=== PATIENT | male | born 1940 | race Caucasian/White ===

== ENCOUNTER 2020-08-30 22:27 | Inpatient (IN) | payer OTHER ==
--- NOTE | 2020-08-31 04:41 | NUR ---
Admission note: Pt admitted at 2205 to [facility], transferred to bed with assist x 2-3 Pt is Alert to self but when he is awake and agitated and combative with cares. V/S 99.0, 116/61, 19, 48, Pt has a decubitus ulcer present on admission to [facility]. Wound is on sacral cleavage 4 cm, depth not measured, Wound consult obtaimed, Joshua Galvez notified of admission, Left a message for Daniel CALLOWAY, she called back and will see the pt this am. Pt denies SI/HI/AH/VH. Lungs clear to auscultation. Until seen by wound care nurse will apply wet to dry dressing to decub. Telephonic consent obtained from Daniel Teran pt DPOA and daughter. She gave consent to treat. Request to have DPOA paperwork. She will bring but states ED should have a copy.
[2020-08-31 05:23] VITALS: BP 119/61
[2020-08-31 06:12] LABS: CHOLESTEROL 109 mg/dL (<200); HDL CHOLESTEROL 51 mg/dL (>40); LDL CHOLESTEROL 48 mg/dL (<100); TC:HDL 2.1 Ratio (Not establshd); TRIGLYCERIDE 51 mg/dL (<150); VLDL 10 mg/dL (<40)
[2020-08-31 06:14] LABS: SERUM ASSESSMENT Clear
--- NOTE | 2020-08-31 07:12 | NUR ---
Wound has not depth, gary red, w/d dressing not needed cleansed wound and applied foam dressing, could benefit from barrier cream on surrounding skin. Pt resistant to turning but did allow staff to keep him clean and dry throughout the night worker with his bottom open to area.
[2020-08-31 09:39] VITALS: BP 143/65
--- NOTE | 2020-08-31 11:26 | NUR ---
1125 RESUMMED CARE FROM OVERNIGHT SHIFT THIS AM, PATIENT IN ROOM LYING QUIET. STAFF AND I GOT PATIENT UP TO GET HIM INTO THE DAY ROOM, PATIENT WAS COMBATIVE WITH CARES. I CLEANED PATIENTS WOUND ON BUTTOCK AND PUT BARRIER CREAM ON THE WOUND AND OPTIFOAM ON THE WOUND. WHILE PUTTING THE PATIENT IN THE NERISSA CHAIR THE OPTIFOAM FELL OFF. WE DO HAVE A CONSULT FOR THE WOUND CARE TEAM TO COME TO SEE PATIENT. PATIENTS DAUGHTER CAME TO VISIT AND STATES THE NH THAT HER FATHERS RESIDES ALLOWS PATIENT TO SIT ALL DAY. SHE FEELS THEY WERE NOT TAKING CARE OF THE WOUND. SHE WOULD LIKE TO SEE ABOUT HOSPICE FOR PATIENT BECAUSE SHE FEELS HE IS GIVING UP. PATIENT UNABLE TO TELL ME ABOUT SI/HI/AH/VH AT PRESENT. PATIENT IS NONE VERBAL BUT WILL HIT AND TRY TO PINCH STAFF WHEN TRYING TO DO CARES. PATIENTS ABSOMEN SOFT BOWEL SOUNDS PRESENT PATIENTS LUNGS CLEAR. WILL CONTINUE TO MONITOR PATIENT FOR SAFETY AND BEHAVIORS.
--- NOTE | 2020-09-01 03:22 | NUR ---
08/31/20- Pt is in bed, alert, agreeable to taking his medication, medications in ice cream. Pt is resistive to cares but with explanation he will allow it. Pt has a sacral ulcer present on admission so he requires frequent checks for incontinence, and turning, pt is resistant to turning but will allow staff to keep him clean and dry. barrier cream applied. will continue to monitor patient through out shift.
[2020-09-01 05:36] LABS: GLYCOHEMOGLOBIN (HGB A1C) 5.2 % (4.8-5.6)
[2020-09-01 08:00] VITALS: BP 120/68
--- NOTE | 2020-09-01 18:40 | NUR ---
PT GETS VERY AGITATED WHEN HE NEEDS TOLIETED OR ANY CARE DONE. PT IS A Q2 TURN AND HIS BRIEF CHECKED Q2 HOURS AND PRN. PT HAS LARGE WOUND TO BUTTOCK AND CONSULT WAS PLACED TO WOUND CARE PHYSICIAN. BARRIER CREAM IS BEING APPLIED TO BUTTOCK. PT'S DAUGHTER VISITED AT AM VISITING HOURS.
--- NOTE | 2020-09-02 01:14 | NUR ---
Assumed care on 09/01/20 @ 1900, reports lower extremities painful, Tylenol 1000mg provided @ 20:05 for lower extremity pain (buttocks). meds provided crushed in pudding. turned and incontinent care provided [id number], tries to hit staff providing care. A&Ox1 to self only. Wheel chair and karla chair used, Farley score of 50. Bed in low position, bed alarm set, will continue to monitor for safety and comfort.
[2020-09-02 08:46] VITALS: BP 126/61
[2020-09-02 08:47] VITALS: BP 126/61
--- NOTE | 2020-09-02 13:11 | NUR ---
Assumed pt care at 0700. Pt was sleeping in his room. pt was confused, Aggressive, combative and hitting staff upon assessments. pT IS DISoriented x4. Assessments completed, vss. ACtive bowel sounds. pt AM temperature was elevated. AMbulates wITH A Deborah chair. Took meds crushed, no difficulty noted. pt bottom pressure wound was clean with saline water, zyguard applied. WOUND CARE Doctor saw pt this shift. PT AND DAUGHTER CALLED TO GET UPDATE ON PT. pT NOON VITAL SIGN BP 116/50, O2 94% Temporal TEM 100.1, anxillary TEM 99.1. RESP 18. DR CRAWFORD notified. AT this time pt is in the day room resting. WILL CONTINUE TO MONITOR.
--- NOTE | 2020-09-02 14:35 | NUR ---
WALTER contacted [facility] and asked to speak to Emma. She was busy at the moment, and so WALTER was forwarded to her . WALTER left a msg. WALTER team will continue to follow pt during his stay on this unit.
[2020-09-02 15:44] LABS: BASOPHILS 0.3 % (0.0-2.0); EOSINOPHILS 0.1 % (0.0-3.0); HEMATOCRIT 39.6 % (42.0-52.0); HEMOGLOBIN 12.8 gm/dL (14.0-18.0); LYMPHOCYTES 2.4 % (24.0-44.0); MCH 29.3 pg (26.0-34.0); MCHC 32.3 g/dL (28.0-37.0); MCV 90.7 fL (80.0-100.0); PLATELET COUNT 190 thou/uL (150-400); POLYS 86.2 % (36.0-66.0); RBC 4.37 mil/uL (4.50-6.00); RDW 13.8 % (10.5-14.5); WBC 11.6 thou/uL (4.0-11.0)
[2020-09-02 15:58] LABS: CALCIUM 9.2 mg/dL (8.5-10.1); CREATININE 0.9 mg/dL (0.7-1.3); POTASSIUM 3.9 mmol/L (3.5-5.1)
[2020-09-02 18:34] LABS: URINE BILIRUBIN NEGATIVE (Negative); URINE BLOOD 3+ (Negative); URINE COLOR YELLOW; URINE GLUCOSE-RANDOM* NEGATIVE (Negative); URINE KETONES 1+ (Negative); URINE PROTEIN (DIPSTICK) 1+ (Negative); URINE SPECIFIC GRAVITY 1.025 (1.005-1.035)
[2020-09-02 18:38] LABS: URINE CLARITY CLOUDY; URINE LEUKOCYTES-REFLEX 1+ (Negative); URINE NITRITE-REFLEX POSITIVE (Negative)
[2020-09-02 18:43] LABS: BACTERIA-REFLEX >30 Many /HPF (None Seen); CASTS None Seen /LPF (None Seen); SQUAMOUS None Seen /LPF (0-3); URINE WBC-REFLEX >25 Many /HPF (0-5)
[2020-09-02 18:44] LABS: AMORPHOUS URATES Moderate /LPF (None Seen)
[2020-09-02 19:53] VITALS: BP 143/59
--- NOTE | 2020-09-03 00:30 | NUR ---
Assumed care on 09/02/20 @ 1900, in bed, repositioning and providing incontinent care q2hour not cooperative with care. A&Ox1 to self only speaks word salad, and insists that he is listened to, but speach is nonsense. New order for Cephalexin 500 for UTI, started @ 2300, administered in pudding with water. Wounds on both left and right gluteal and coccyx cleaned with NS, treated with silversulfadiazine mixed with barrier cream. Bed in low position, bed alarm set. PRN tylenol 1000 mg provided for pain of 6/10 in the lower extremities and buttocks. Will continue to monitor as per unit protocol.
[2020-09-03 09:24] VITALS: BP 134/63
--- NOTE | 2020-09-03 12:31 | NUR ---
Alert and orientated to name only. Denies SI/HI. Requiring assistance with feeding but is compliant. Breath sounds clear. Regular HR auscultated. Color pink with brisk capillary refill and palpable peripheral pulses. No edema noted. Brief dry. Active bowel sounds over soft, flat abdomen. Wounds per buttocks bilaterally and coccyx with scant amt serosangious drainage. Cleaned and silvadene/barrier cream applied. Placed in karla chair. Sitting in chair all AM without s/o distress.
--- NOTE | 2020-09-03 14:31 | HC ---
[facility] [place] [address] [place] [address] CONSULTATION Name: SAHIL BRIONES Room #: 528A-A ADM IN .R.#: [id number] Admission: 08/30/20 Attend Phys: Aida Emery MD Discharge: Date of : 40 Report #: [id number] THIS REPORT FOR: cc: WILNER ELLER Physician not on staff Rodger Logan MD ~ DATE OF SERVICE: 09/02/2020 WOUND CARE CONSULTATION PERSONAL PHYSICIAN: None on staff. CHIEF COMPLAINT: Gluteal and sacral ulcer. HISTORY OF PRESENT ILLNESS: This is a 79-year-old white male who was admitted to the Geriatric Psychiatric unit for aggressive behavior at his facility. Upon admission, it was noted the patient had what appears to be a deep tissue injury along both buttocks consistent with what appears to be a bedpan or a toilet seat configuration. There is also an unstageable decubitus ulcer in the sacrococcygeal region. The patient himself is aggressive and is unable to give any history whatsoever. There are no family members here at this time. The patient appears to complain of pain when palpating the area; however, he does not complain of pain when he supposedly sits in a chair. PAST MEDICAL HISTORY: Significant for progressive Alzheimer's, hypertension, asthma. CURRENT MEDICATIONS: Multiple. I reviewed the patient's medication list. DRUG ALLERGIES: None. SOCIAL HISTORY: The patient resides in a long-term care facility. FAMILY HISTORY AND REVIEW OF SYSTEMS: Unobtainable because of the patient's altered mental status and confusion. PHYSICAL EXAMINATION: VITAL SIGNS: Temperature 37.7, pulse 76, respirations 18, BP 126/61. GENERAL: This is an awake, but not oriented white male who is very aggressive and difficult to examine. HEENT: Normocephalic, atraumatic. Mucous membranes are somewhat dry. Pupils are round. Sclerae white. NECK: Without JVD. LUNGS: Show unlabored respirations. ABDOMEN: Soft, nontender. SKIN: Evaluation of gluteal region reveals bilateral gluteal deep tissue [facility] [address] [place] [address] CONSULTATION Name: SAHIL BRIONES Room #: 528A-A ADM IN ..#: [id number] Admission: 08/30/20 Attend Phys: Aida Emery MD Discharge: Date of : 40 Report #: [id number] injuries in a semicircular shape with some early skin breakdown and minimal serosanguineous drainage noted. There is also an unstageable decubitus ulcer of the sacrococcygeal region which is markedly 100% slough with a moderate amount of serosanguineous drainage noted with no significant odor. EXTREMITIES: The patient moves all extremities without difficulty. Bilateral heels are intact. NEUROLOGIC: Cranial nerves II-XII grossly intact. Motor and sensory are grossly intact. LABORATORY DATA: Hemoglobin A1c is 5.2. No other laboratory values were available. IMPRESSION: 1. Bilateral inferior gluteal deep tissue injuries. 2. Unstageable decubitus ulcer in the sacrococcygeal region. 3. Alzheimer's with aggressive behavior. PLAN: At this time, we will start Silvadene and barrier guard mixed together to the site and leave open to air, with his briefs it is difficult to keep the dressing in place in this area. Hence, we will leave it open to air. We will follow this closely. If this begins to breakdown further, which I am afraid that it might, we will need to have further more aggressive; talked with the family about the possibility of surgical debridement even diverting colostomy. However, at this time, we will wait until the ulcerations declare themselves in the next several days. According to the hospitalist, the family does not want any aggressive measures at this time. We will make sure we maximize the patient's oral protein supplementation to assist in healing and try to keep him off of his back side as much as possible. Appreciate ability to consult. <ELECTRONICALLY SIGNED> By: Rodger Logan MD 09/03/20 [id number] Rodger Logan MD /nt
--- NOTE | 2020-09-03 17:44 | NUR ---
Phone call from CINDY, Jacqueline Teran, regarding father. Ms. Teran requested a meeting as she had not heard from the doctor. SW informed Ms. Teran that the file would be reviewed and that the SW would attempt to contact the doctor and call back. Phone call to JONO Carter at [facility] ([phone], email: [email or web address]) - Voice message. Emma called back. She stated the pt. is able to return to the facility if they are able to meet basic needs including changing the pt and medication. Pt. had been extremely combative with staff which had caused staff to not be able to meet basici needs. Emma reported to talking to a nurse at [facility] who stated "we just get it done". Emma is concerned that there are some family dynamics that causes problems. WALTER informed Emma that a more clearer picture would be had after the team meeting to determine if the pt. would need a higher level of care. Phone call to the DPOA, Ms. Teran. Ms. Teran was informed the pt. could return to the placement. Ms. Teran is against the pt. returning. Ms. Teran needs to know what level of care facility she needs to look for for the pt. The SW got background information for the pt. The pt. is a retired [employer]. The pt. has a college degree from . The patient's father is (Parkinsons) along with the mother (Alzheimers). The patient does not have a relationship with the brother and the DPOA has limited contact with the sister. The pt's , DPOA's mother, is in the picture; however, the has some resentment with the daughter being the DPOA. Depression runs in the family. contacted Ms. Teran back after reviewing the notes.
[2020-09-03 19:53] VITALS: BP 128/85
--- NOTE | 2020-09-04 06:07 | NUR ---
09-03-20 CARE TRANSFERRED 0. LATER PT AAOX1, VSS, RR EVEN AND NONLABORED ON RA. OBSERVED NO S/S OF PAIN. NO NEGATIVE BEHAVIORS OBSERVED SI/HI. PT PRESENTS CONFUSED BUT COOPERATIVE. LATER PT WAS CLEANED WOUNDS CLEANED WITH NS AND SILVERDENE APPLIED ORDER. PT WAS LEFT OPEN TO HAIR AND BED ADJUSTED FOR COMFORT. PT WILL CONTINUE TO BE MONITOR PER [facility] PROTOCOL, ZERO S/S OF ACUTE DISTRESS NOTED.
--- NOTE | 2020-09-04 17:57 | NUR ---
In person meeting with CINDY, Jacqueline Teran. Jacqueline was unable to visit with pt. as pt. was sleeping. She states this is normal for him. Jacqueline would like to speak to the doctor regarding the pt's wounds and how that will impact placement. Jacqueline is adamant that the pt. will not return to [facility] due to her concern with the care received. Jacqueline also inquired as to whether or not it is time to look into hospice for the pt. due to the decline in caring for himself.
[2020-09-04 20:04] VITALS: BP 106/54
--- NOTE | 2020-09-04 20:26 | NUR ---
COMLIENT WITH TAKING MEDICATIONS CRUSHED IN PUDDING- OVERALL MOOD IS CALM-NO NOTED OR REPORTED PSYCHOSIS-SI/HI ETC. ORIENTED TO PERSON ONLY. DOES BECOME AGITATED WITH INCONTINENT CARES AND REPOSITIONING-HAS REQUIRED Q 2 HOUR REPOSITIONING D/T WOUNDS AND IS COMPLAINTIVE STATING "YOU KEEP COMING IN HERE AND WAKING ME UP FOR NOTHING-YOU JUST WANT TO TOSS ME AROUND" WAS UP AT LUNCH AND DINNER AND APPETITE IS GOOD-REPORTING PAIN TO COCYX WOUND BUT UNABLE TO RATE VIA PAIN SCALE. WAFFLE CUSHION PLACED IN GERICHAIR AND DOES REPORT IMPROVEMENT. INCONTINENT OF DK YELLOW URINE X 3 TODAY -LARGE AMPOUNT REQUIRING COMPLETE LINEN CHANGE X2. REMAINS HIGH FALLS RISK
--- NOTE | 2020-09-05 06:14 | NUR ---
09-04-20 CARE TRANSFERRED 1900 OBSERVED PT SITTING IN DAY ROOM. LATER PT AAOX1, VSS, RR EVEN AND NONLABORED ON RA, PT DENIES PAIN AND OBSERVED NO S/S OF PAIN, OBSERVD NO SI/HI BEHAVIORS. DURING MEDICATION ADMIN PT HAD NO DIFFICULTIES TAKING CRUSHED WITH MEDICATION, PT ATE 100% OF HS SNACK. LATER PT WAS TRANSFERRED TO BED AND WOUND CLEANED WITH NS AND SILVERDENE APPLIED, PT HAS BEEN LEFT OPEN TO AIR. PT WAS REPOSITION Q2. THIS AM PT WOUND PRN CLEANED WITH NS AND SILVERDENE APPLIED. PT ALARM IN CHAIR, WITH WAFFLE CUSHION AND PT WAS BROUGHT TO DAY ROOM. PT WILL CONTINUE TO BE MONITOR PER [facility] PROTOCOL.
[2020-09-05 10:13] VITALS: BP 126/68
--- NOTE | 2020-09-05 11:30 | NUR ---
Alert and orientated to name only. Calm and cooperative except during wound care when he became slightly agitated. Denies SI/HI. Placed in bed around 10:30 d/t wounds. Able to bear wt but required assistance of 2 staff members. Breath sounds clear. Color pink with brisk capillary refill and palpable peripheral pulses. Incontinent of dark yellow urine. Active bowel sounds over soft, rounded abdomen. Dressing removed from L forearm, circular area oozing sanguious fluid, minimal amt, cleaned and covered with non adherent drsg. 3 wounds per buttocks and coccyx. L buttock wound with white, firm base without drainage. Other two wounds appear to be healing with minimal amts serosangious drainage. Cleaned and silvadene and barrier cream zinc paste applied. Currently resting in bed without s/o distress.
--- NOTE | 2020-09-05 12:01 | NUR ---
RT Progress Note- At this time, Jose has yet to engage in the milieu and recreation groups. Jose's wounds often require him to be in bed at the time of scheduled programming. When he is able to be in attendance, Jose has not engaged. RT team will continue to encourage presence in groups and milieu and will offer 1;1 leisure opportunities when tolerated.
[2020-09-05 19:35] VITALS: BP 139/63
[2020-09-06 05:01] LABS: HEMATOCRIT 36.9 % (42.0-52.0); HEMOGLOBIN 12.2 gm/dL (14.0-18.0); MCH 29.5 pg (26.0-34.0); MCHC 33.2 g/dL (28.0-37.0); MCV 89.1 fL (80.0-100.0); RBC 4.14 mil/uL (4.50-6.00); RDW 13.7 % (10.5-14.5); WBC 5.3 thou/uL (4.0-11.0)
--- NOTE | 2020-09-06 05:26 | NUR ---
09-05-20 CARE TRANSFERRED 1900 OBSERVED PT SITTING IN DAY ROOM. LATER PT AAOX1, VSS, RR EVEN AND NONLABORED RA. PT DENIES SI/HI AND PAIN. PT PRESENTS CALM AND COOPERATIVE THROUGHOUT NURSING ASSESSMENT. DURING MEDICATION ADMIN PT HAD NO DIFFICULTIES, BUT REPORTED HE WAS READY TO GO TO BED, BUT HIS BUTT WAS HURTING, NOTED PT RAISING UP IN RECLINER, PT WAS TAKEN TO ROOM, WHERE WOUND CARE WAS COMPLETED USING NS AND SILVERDENE AND Z-GUARD IN AREAS OF REDNESS. PT WAS IRRITABLE DURING CARES, BUT REMAINED COOPERATIVE. PT WILL CONTINUE TO BE MONITOR PER [facility] PROTOCOL.
[2020-09-06 05:35] LABS: CALCIUM 8.4 mg/dL (8.5-10.1); CREATININE 0.8 mg/dL (0.7-1.3); MAGNESIUM 2.1 mg/dL (1.8-2.4); POTASSIUM 4.3 mmol/L (3.5-5.1)
[2020-09-06 10:25] VITALS: BP 141/74
--- NOTE | 2020-09-06 17:30 | NUR ---
Patient care was assumed by 0700, he was sitting in the day room, calm and cooperative during assessment, alert to self and confused, vss, lungs clear, BS active, incont for bowel and urine, ate 100% of all meals, took medication crushed. pericare and wound care was done using silver Sulfadiazine with barrier cream, max assist. Patient denies SI/HI, will continu to monitor
--- NOTE | 2020-09-06 17:35 | NUR ---
Phone contact with Jacqueline Teran ([phone]), PATRICIAOA for the pt. Ms. eTran is looking into [facility] for placement for the pt. She requested a referral packet be faxed to Floridalma at [phone]. Fax sent to Floridalma of [facility] - new referral packet.
[2020-09-06 19:13] VITALS: BP 126/60
--- NOTE | 2020-09-06 22:26 | NUR ---
PATIENT CARE ASSUMED AT 1900, PATIENT SITTING IN NERISSA CHAIR IN DAY ROOM AT THAT TIME. MEDS GIVEN CRUSHED IN ICE CREAM WITHOUT DIFFICULTY. A&OX SELF ONLY. ABLE TO STATE FIRST NAME AND , BEGINS SPEAKING ABOUT MONEY WHEN ANSWERING OTHER QUESTIONS. TAKEN TO ROOM FOR PERICARE AND WOUND CARE. WOUND CLEANED WITH NORMAL SALINE AND SIVERDENE-BARRIER CREAM PASTE APPLIED TO WOUND BEDS. NOTED SOME DISCOMFORT WHEN PROVIDING CARE, THOUGH PATIENT RELAXED ONCE THIS WAS DONE. PATIENT NOW LYING IN BED WITH EYES CLOSED.
[2020-09-07 08:00] VITALS: BP 103/89
--- NOTE | 2020-09-07 11:23 | NUR ---
PATIENT CARE ASSUMED 0700, PATIENT SITTING IN THE DAY ROOM, ATE BREAKAST, ALERT AND DISORIENTED TO PLACE, TIME.ASSESSMENT COMPLETED, LUNGS CLEAR, BOWEL SOUND ACTIVE, RR EVEN AND NONLABORED ON ROOM AIR, VSS, PATIENT IS INCONTINENT OF BM AND URINE, IRRITABLE DURING WOUND CARE AND PERICARE, WOUND CLEAR WITH NORMAL SALINE, SILVERDENE, AND BARRIERS CREAM, PATIENT DENIES SI/HI. WILL CONTINUE TO MONITOR
--- NOTE | 2020-09-07 13:37 | NUR ---
WALTER faxed updates to [facility] regarding pt. WALTER team will continue to follow pt during his stay on this unit.
[2020-09-07 18:44] LABS: URINE BILIRUBIN NEGATIVE (Negative); URINE BLOOD TRACE (Negative); URINE CLARITY CLEAR; URINE COLOR YELLOW; URINE GLUCOSE-RANDOM* NEGATIVE (Negative); URINE KETONES NEGATIVE (Negative); URINE LEUKOCYTES-REFLEX NEGATIVE (Negative); URINE NITRITE-REFLEX NEGATIVE (Negative); URINE PROTEIN (DIPSTICK) NEGATIVE (Negative); URINE SPECIFIC GRAVITY 1.015 (1.005-1.035)
[2020-09-07 19:23] VITALS: BP 140/61
--- NOTE | 2020-09-07 22:53 | NUR ---
PATIENT CARE RESUMED AT 1900, PATIENT LYING IN BED ON RIGHT SIDE. MEDS GIVEN CRUSHED IN PUDDING WITHOUT DIFFICULTY. PATIENT INCONTINENT OF BOWEL AND BLADDER, ANGELINA CARE PROVIDED, WOUND CLEANED WITH NORMAL SALINE AND SILVERDINE/BARRIER CREAM MIXTURE APPLIED. PATIENT IRRITABLE WITH WOUND AND ANGELINA CARE. PLACED ON LEFT SIDE AFTER CLEAN UP. CONTINUING Q2H TURNS.
[2020-09-08 09:42] VITALS: BP 118/94
--- NOTE | 2020-09-08 13:22 | NUR ---
PATIENT CARE ASSUMED AT 0700 - SITTING IN DINING HA WHEN ARRIVING ON UNIT. PATIENT ALERT - TOLERATED MEDICATIONS CRUSHED IN PUDDING. ATE WELL WITH ASSISTANCE. VITALS STABLE - NO PAIN DISCOMFORT WHEN QUESTIONED. HEART RATE STRONG AND STEADY AND LUNGS CLEAR ON AUSCULTATION. ASSISTED TO BED AFTER LUNCH. HAD BOWEL MOVEMENT AND ASSISTED WITH CHANGE - APPLIED OINTMENT AT THIS TIME TO WOUND AREAS ON COCCYX AND BUTTOCKS. RESISTED DUE TO PAIN WHEN BEING CLEANED. STAFF ATTEMPTED TO REASSURE BUT TILL RESISTANCE EVEN WITH EXPLANATION ON WHAT WE WERE DOING. NOW SLEEPING AND COMFORTABLE IN HIS ROOM. WILL CONTINUE TO MONITOR FOR SAFETY AND ANY FURTHER CONCERNS AND ADDRESS ACCORDINGLY,.
[2020-09-08 19:41] VITALS: BP 139/75
--- NOTE | 2020-09-09 03:36 | NUR ---
PATIENT HAS BEEN IN ROOM IN BED ALL SHIFT. HE IS TURNED EVERY 2 HOURS BUT PULLS THE WEDGE AND PILLOWS OUT AND THROWS THEM SO HE CAN LAY ON BACK. PT HAS WOUNDS ON EACH BUTTOCK AND COCCYX. WOUNDS CLEANED THIS EVENING WITH NORMALSALINE AND MIXTURE OF SILVADENE AND MOISTURE BARRIER CREAM APPLIED TO THE AREAS AND LEFT OPEN TO AIR. PATIENT IN INCREASED AMOUNT OF PAIN WITH INCONTINENCE CARES AND WOUND CARE. THE AREAS ARE OPEN AND RAW AND SHOWING SOME HEALING AT BORDERS. NO DRAINAGE, ODOR NOTED. NO SIGNS OF INFECTION. SOME GRANULATION BEGINNING. PATIENT TOOK HIS MEDS CRUSHED IN PUDDING TONIGHT. NO SIGNS OF SI/HI/AVH NOTED. ROUTINE ROUNDS TO ASSESS FOR SAFETY AND STATUS OF PATIENT. BED IN LOW POSITION AND BED ALARM IS ON. CONTINUING TO MONITOR.
[2020-09-09 08:53] VITALS: BP 110/56
--- NOTE | 2020-09-09 17:22 | NUR ---
Assumed pt care at 0700. Pt was in the day room resting. Alert and oriented to self. PT WAS CONFUSED UPON ASSESSMENTS. No sign of acute distress noted, no sign of si/hi. No c/o pain at this time. Pt took meds crushed in pudding, no difficulty noted. ambulates with a karla chair. pt is aggressive and irritable with care. after care pt is calm and cooperative. AT this time pt is eating dinner in the dinning room. Will continue to monitor.
[2020-09-09 19:52] VITALS: BP 116/65
--- NOTE | 2020-09-09 22:11 | NUR ---
ASSUMED PATIENT CARE AT 1900. PATIENT LYING IN BED AWAKE AT THAT TIME. NO S/S OF DISTRESS OR DISCOMFORT. NO C/O PAIN OR DISCOMFORT, EXCEPT WITH WOUND CARES AND INCONTINENT/ANGELINA CARE. PATIENT MORE COMPLIANT WITH THE ANGELINA CARE, BUT DOES BRACE HIMSELF WHEN TURNED AND PROVIDED CARE. CONFUSED UPON ASSESSMENTS, ABLE TO STATE NAME. DISORIENTED TO PLACE/SITUATION/TIME. PLEASANTLY CONFUSED OTHERWISE. CONTINUES TO RECIEVE WOUND CARE - NORMAL SALINE AND SILVADINE/BARRIER CREAM MIXTURE TO WOUND BEDS ON BUTTOCKS. Q12 MIN SAFETY CHECKS, Q2H TURNS, FALL PRECAUTIONS IN PLACE.
[2020-09-10 09:35] VITALS: BP 84/69
--- NOTE | 2020-09-10 12:53 | NUR ---
PATIENT CARE ASSUMED AT 0700 - WAS IN BED AT CHANGE OF SHIFT. STAFF ASSISTED PATIENT UP TO NERISSA CHAIR IN DINING HA. CHANGED AND OINTMENT APPLIED TO OPEN AREA OF BUTTOCKS AND COCCYX. PATIENT QUIET - ALERT AND ORIENTED X 1 - SITS QUIETLY IN CHAIR - PERIODICALLY CLOSING HIS EYES OFF AND ON. PATIENT WAS IN DINING HA DURING MORNING GROUP ACTIVITY BUT INTERACTION WAS LIMITED IF NOT AT ALL. GRIMACES WHEN RESITUATING ON CHAIR - EVIDENCE OF DISCOMFORT - PATIENT DOES NOT ANSWER READILY TO ASSESSMENT QUESTIONS - WILL CONTINUE TO MONITOR PATIENT FOR SAFETY AND ANY CONCERNS OR CHANGES IN BHAVIOR AND ADDRESS ACCORDINGLY.
[2020-09-10 19:54] VITALS: BP 113/51
--- NOTE | 2020-09-10 22:56 | NUR ---
RESUMED PATIENT CARE AT 1900. PATIENT LYING IN BED AT THIS TIME. NO S/S OF DISTRESS OR DISCOMFORT, EXCEPT DURING PERSONAL CARES AND WOUND CARE. WOUNDS TO BUTTOCKS CLEANED WITH NS AND SILVADINE/BARRIER CREAM MIXTURE REAPPLIED. TOOK MEDS WHOLE WITH ICE CREAM WITHOUT DIFFICULTY. PROVIDED PRN TYLENOL TO PREMEDICATE FOR PAIN PRIOR TO WOUND CARE, SEEMS TO HELP SOME. PATIENT NOW APPEARS TO BE SLEEPING. CONTINUE TO TURN Q2H AND DO REGULAR PERICARE TO KEEP ANY MOISTURE OFF ANGELINA AND BUTTOCKS AREAS TO PROMOTE FURTHER HEALING AND PREVENT ANY FURTHER WOUNDS. WILL CONTINUE ON Q12 MIN SAFETY CHECKS AND FALL PRECAUTIONS.
[2020-09-11 09:29] VITALS: BP 145/85
--- NOTE | 2020-09-11 13:08 | NUR ---
PATIENT WAS IN BED ASLEEP WHEN ARE ASSUMED, HE CHOOSE NOT TO EAT BREAKFAST WHEN OFFFERED. MORNING MEDICATION GIVEN IN ICECREAM, WELL TOLERATED. PATIENT IS TURNED FROM SIDE TO SIDE EVERY 2HRS. INCONTINENT CARE PROVIDED NEEDED. WOUND TO BUTTOCKS AREA CLEANED WITH JOVANNI SALINE, SILVADINE/MALDONADO CREAM APPLIED TO AREA, AND LEFT OPEN TO AIR. PATIENT WAS IRRITABLE DURING WOUND CARE, AND PERICARE, SETTLED DOWN AFTER CARE. NO AGITATION OR AGGRESSIVE BEHAVIOR NOTED. PATIENT CONSUMED 100% OF LUNCH, FED BY STAFF. PATIENT IS DRINKING FLUID WELL. AFEECT IS FLAT BLUNTED, MOOD IS DEPRESSED. PATIENT RESPONDS TO INTERNAL STIMULI, TALKS TO SELF, AND UNSEEN OTHERS. NO SIGN OF ACUTE DISTRESS NOTED AT THIS TIME, WILL MONITOR FOR SAFETY.
--- NOTE | 2020-09-11 14:37 | NUR ---
MARCIN and Dr. King had a conversation with Jacqueline on Wednesday and provided to her updates. She said at that time she is working with Tammy Mahajan to get pt their as she is not confident in [facility]'s abilities to care for pt. MARCIN followed up with Yisel [phone], who asked Marcin to fax more updates to [phone]. She said pt's daughter is eager to move pt in, but she wants to make sure they can are for all his needs including the sores on his rear. MARCIN faxed updates. MARCIN team will continue to follow pt during his stay on this unit.
[2020-09-11 20:19] VITALS: BP 147/102
--- NOTE | 2020-09-12 04:29 | NUR ---
PATIENT CARE RESUMED AT 1900, PATIENT LYING IN BED AT THAT TIME. MEDS GIVEN CRUSHED IN ICE CREAM WITHOUT DIFFICULTY. BECOMES IRRITABLE WITH ADLS/PERICARE/WOUND CARE, THOUGH NO AGITATION OR AGGRESSION NOTED. PATIENT VERY RESTLESS AT NIGHT, HE TURNS HIMSELF SOMETIMES FROM THE POSITION STAFF PUT HIM IN - Q2H TURNS. URINATES EVERY TIME PATIENT IS TURNED, REQUIRING FREQUENT ANGELINA CARE. WOUND CARE OF BUTTOCKS COMPLETED, LEFT OPEN TO AIR. PATIENT VERY RESTLESS AND DOES NOT APPEAR TO SLEEP FOR VERY LONG AT NIGHT. Q12 MINUTE SAFETY CHECKS AND FALL PRECAUTIONS. REQUIRES ASSIST X 2-3 FOR CARES AND TRANSFERS DUE TO RESISTANCE.
--- NOTE | 2020-09-12 08:35 | NUR ---
RT Progress Note- Jose has continued to show very little engagement in the milieu and in recreation therapy groups. When able to be up off of his wounds and present in group, Jose is a passive participant and rarely responds to interaction unless done so 1;1. He has not displayed any aggression or agitation during this time. RT team will continue to encourage participation as he is able.
[2020-09-12 09:31] VITALS: BP 98/60
--- NOTE | 2020-09-12 14:31 | NUR ---
Alert and orientated to name only. Calm, quiet and compliant with meds crushed and placed in yogurt. Denies SI/HI. Breath sounds clear. Reg HR auscultated. Color pink with brisk capillary refill and palpable peripheral pulses. Incontinent of yellow urine. Small smear of stool. Large white wounds on buttocks bilaterally with additional wound above coccyx, small amt sanguious drainage at edges when cleaned, silvadene and barrier cream applied. Leaving in bed and turning q 2 hrs to keep pressure off wounds. Wounds photographed and placed in chart. Dr. King communicated with wound team and sent them photo, they state to leave in bed and they will assess this afternoon. Fed in bed at noon, ate 100% of meal and supplements. When wounds cleaned he states his butt hurt, tylenol given crushed in apple sauce. Marco given in prune juice. Currently sleeping without s/o distress.
--- NOTE | 2020-09-13 02:27 | NUR ---
PATINET CARE WAS RESUMED AT 1900. HE IS ALERT WITH SOME CONFUSSION. MAX ASSIT WITH CARE. ABD IS SOFT. HE IS ON [id number] TURN. PRN TYLENOL GIVEN FOR PAINS. LUNGS ARE CLEAR BS ACTIVE X4 QUADS.HE DENIES SI/AVH/HI. BED IS LOW, LOCKED AND ALARMED. YELLOW TOP AND SOCKS ON. DRESSING TO BUTTOCKS INTACT CONTINUE CARE AND MONITOR Q 12MINUTES. MAX ASSIST WITH REPOSITION AND ANGELINA-CARE.
[2020-09-13 08:25] VITALS: BP 96/73
[2020-09-13] MEDS ORDERED: FLOMAX0.4 MG PO (11:47)
[2020-09-13] MEDS ORDERED: ARICEPT10 MG PO (11:47)
[2020-09-13] MEDS ORDERED: LIPITOR 20 MG T20 M1 PO (11:49)
[2020-09-13] MEDS ORDERED: LISINOPRIL20 MG PO (11:50)
[2020-09-13] MEDS ORDERED: ZYPREXA 5 MG TAB5 M1 PO (11:51)
[2020-09-13] MEDS ORDERED: NAMENDA 5 MG TAB5 M1 PO (11:52)
[2020-09-13] MEDS ORDERED: DAKIN'S473 M2 IRRIG (11:53)
[2020-09-13] MEDS ORDERED: B-12500 MCG PO (11:54)
[2020-09-13] MEDS ORDERED: VITAMIN D3125 MC1 PO (11:54)
[2020-09-13] MEDS ORDERED: CENTRUM SILVER1 EAC4 PO (11:55)
--- NOTE | 2020-09-13 13:37 | NUR ---
Assumed care of patient 0700, sleeping in bed, got him up for breakast, calm and cooperative, took his medication crushed, lungs clear, bs active, vss, wound dressing done and picture taken. patient discharged 13:10,[facility], report was given to nurse quintero at the facility, instructions on how to do the wound dressing was also given to Craig. daughter was notifed of the discharged, she is the DPOA
--- NOTE | 2020-09-14 23:12 | D ---
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 SECONDARY DIAGNOSIS: Multiple decubiti on his buttocks. ADDITIONAL MORBIDITIES: Are as follows, urinary tract infection, treated with Keflex, lisinopril, hyperlipidemia. The patient is a DNR. The patient is discharging to [facility] facility. Regular diet. Ensure enlive abd Marco with lunch and dinner. The patient needs q. 2 hour around the clock pressure offloading. Specific wound care orders were issued by Dr. Oliver and his nurse. DISCHARGE MEDICATIONS: Donepezil 10 mg oral daily; tamsulosin 0.4 mg oral daily for cognitive enhancement and BPH; atorvastatin 20 mg oral 3 times a week for hyperlipidemia; lisinopril 40 mg a day for hypertension, hold if blood pressure less than 100; olanzapine 5 mg oral daily at 0900 and 2100; memantine 10 mg oral twice daily for cognitive enhancement, Dankens applied twice daily to the wounds, cyanocobalamin 1000 mcg oral daily, vitamin D3 5000 international units oral , multivitamin oral daily. LABORATORY DATA: Significant laboratories this admission, hematology most recent 09/06, white count 5.3, H and H 12.2 and 36.9, platelet count 229. Sodium 141, potassium 4.3, chloride 106, bicarbonate 30, BUN 34, creatinine 0.8, estimated GFR 93, glucose 89, calcium 8.4, magnesium 2.1. Lipids: Triglycerides 51. Total cholesterol 109, LDL 48, HDL 51. A1c 5.2. Urinalysis initially positive on 09/02/2020, trace on 09/07/2020. Microbiology, Escherichia coli and Enterococcus pansensitive REASON FOR ADMISSION: Back on 08/31/2020 He had agitation and failure to thrive at [facility]. [address] [address] DISCHARGE SUMMARY Name: SAHIL BRIONES Room #: [facility]#: [id number] Admission: 08/30/20 Attend Phys: Aida Emery MD Discharge: 09/13/20 Date of : 40 Report #: [id number] Recently, he was at [facility] on 08/28/2020 after a 2-week stay. He was refusing care, refusing to feed himself, refusing to bathe, dress aggression towards staff. HOSPITAL COURSE: The patient was admitted to Geriatric Psychiatry Unit. He was initially continued on olanzapine 5 mg oral at bedtime. When I picked up his case on 09/09/2020, I then increased to 5 mg oral twice a day. He did not need a mood stabilizer and was recognized during that period I had his case that his sacral wound had worsened. A day or two before discharge, Dr. Daugherty and I made a call to his daughter, Jacqueline. We discussed the situation with Dr. Daugherty and spoke with her earlier in the admission, she wanted conservative care. No surgical debridement, no feeding tube, so forth. After this discussion, we continued on the path for skilled discharge. The daughter was unhappy with [facility] and the patient will not return there. PHYSICAL EXAMINATION: VITAL SIGNS: weight 72.348 kilos. He is thin. Blood pressure today 96/73, afebrile, in Deborah chair, not ambulatory at this time. MENTAL STATUS EXAMINATION: Well-developed, ill-appearing tall male appearing older than stated age. Attention limited. Concentration limited. Speech soft. Sporadically engage. No self-injurious behavior, not appear to be responding to internal stimuli. denied Auditory/Visual/Tactile Hallucinations Mood and affect was constricted. Memory not impaired. Insight is impaired, judgment is impaired. Fund of knowledge well below average. Prognosis for this patient is quite guarded given his physical state, decubiti, poor nutrition status, and neurodegenerative disease. <ELECTRONICALLY SIGNED> By: Donny King DO 09/14/202311 21 41 Donny King DO /nt
== END 2020-09-13 13:15 | DRG 57 ==
LOC: SBH 22:27
PROVIDERS: Hospitalist; Internal Medicine; ADMIT Psychiatry & Neurology Psychiatry; ATTEND Psychiatry & Neurology Psychiatry
DX: G30.9 Alzheimer's disease, unspecified (principal); F01.51 Vascular dementia, unspecified severity, with behavioral disturbance; F02.81 Dementia in other diseases classified elsewhere, unspecified severity, with behavioral disturbance; N39.0 Urinary tract infection, site not specified; E44.1 Mild protein-calorie malnutrition; Z66 Do not resuscitate; L89.150 Pressure ulcer of sacral region, unstageable; I10 Essential (primary) hypertension; E78.5 Hyperlipidemia, unspecified; N40.0 Benign prostatic hyperplasia without lower urinary tract symptoms; J45.909 Unspecified asthma, uncomplicated; L89.326 Pressure-induced deep tissue damage of left buttock; L89.316 Pressure-induced deep tissue damage of right buttock; R53.81 Other malaise; Z79.899 Other long term (current) drug therapy; Z79.82 Long term (current) use of aspirin; Z68.20 Body mass index [BMI] 20.0-20.9, adult
CPT/HCPCS: 10880